=== PATIENT | female | born 1990 | race Caucasian/White ===

== ENCOUNTER 2018-02-08 16:47 | Emergency (ER) | payer BC ==
[~2018-02-08] VITALS: Ht 160 cm; Wt 63.5 kg
[2018-02-08] MEDS ORDERED: LEXAPRO10 MG PO (17:05)
[2018-02-08 17:21] LABS: BASO % 0.1 % (0.0-1.0); BILIRUBIN NEGATIVE (NEGATIVE); BLOOD NEGATIVE (NEGATIVE); CLARITY SL CLOUDY (CLEAR); COLOR YELLOW (YELLOW); EOS % 0.1 % (1.0-4.0); GLUCOSE NEGATIVE (NEGATIVE); HEMATOCRIT 45.1 % (37.0-47.0); HEMOGLOBIN 15.3 g/dl (12.0-16.0); KETONE 1+ (NEGATIVE); LEUKO ESTERASE NEGATIVE (NEGATIVE); LYMPH # 0.5 10*3/uL (1.3-4.4); LYMPH % 3.1 % (27.0-41.0); MEAN CELL VOLUME 86.1 fl (81.0-99.0); MEAN CORPUSCULAR HGB 29.2 pg (27.0-31.0); MEAN CORPUSCULAR HGB CONC 33.9 g/dl (33.0-37.0); MEAN PLATELET VOLUME 11.8 fl (9.6-12.3); MONO # 0.4 10*3/uL (0.1-1.0); MONO % 2.6 % (3.0-9.0); NEUT # 13.8 10*3/uL (2.3-7.9); NEUT % 93.8 % (47.0-73.0); NITRITE NEGATIVE (NEGATIVE); PLATELET COUNT AUTOMATED 151 10*3/uL (130-400); RED BLOOD COUNT 5.24 10*6/uL (4.10-5.10); RED CELL DISTRI WIDTH 12.2 % (0-14.5); UROBILINOGEN 0.2 E.U./dl (0.2-1.0); WHITE BLOOD COUNT 14.7 10*3/uL (4.8-10.8)
[2018-02-08 17:28] LABS: BACTERIA 2+; MUCOUS TRACE; RBC 0-2 rbc/hpf (0-2)
[2018-02-08 17:37] LABS: ALBUMIN 4.4 gm/dl (3.1-4.5); ALKALINE PHOSPHATASE 59 U/L (45-117); BUN 20 mg/dl (7-24); CHLORIDE 107 mmol/L (98-107); CREATININE 0.69 mg/dL (0.55-1.02); POTASSIUM 3.6 mmol/L (3.5-5.1); SGOT/AST 12 IU/L (3-35); SGPT/ALT 27 U/L (12-78); SODIUM 140 mmol/L (136-145); TOTAL PROTEIN 7.8 gm/dL (6.4-8.2)
[2018-02-08 17:43] LABS: ATYPICAL LYMPHS 1 % (0-0); TOTAL CELLS COUNTED 100 #CELLS
[2018-02-08 17:44] LABS: PLATELET SUFFICIENCY NORMAL (NORMAL)
[2018-02-08] MEDS ORDERED: ZOFRAN ODT4 MG SL (18:30)
== END 2018-02-08 18:54 | disposition home or self-care (01) ==
LOC: ED 16:47
PROVIDERS: Nurse Practitioner Family
DX: K29.70 Gastritis, unspecified, without bleeding (principal); Z79.899 Other long term (current) drug therapy